=== PATIENT | female | born 1960 | race Caucasian/White ===

== ENCOUNTER 2021-04-03 12:16 | Inpatient (IN) ==
[2021-04-03] MEDS ORDERED: PANTOPRAZOLE 40 MG VIAL IV STA (13:42)
[2021-04-03 16:18] LABS: Basophils % 0.3 % (0.0-0.8); Eosinophils % 0.3 % (0.00-10.9); Hematocrit 30.1 VOL% (35.7-47.0); Hemoglobin 9.6 GM/DL (12.0-16.0); Immature Granulocytes % 0.5 %; Immature Granulocytes Absolute 0.04 #; Lymphocytes # 0.9 10*3/uL (1.4-4.0); Lymphocytes % 11.3 % (21.3-54.2); Mean Corpuscular HGB Conc 31.9 GM/DL (32-36); Mean Corpuscular Volume 98.4 FL (87-102); Mean Platelet Volume 9.7 FL (9.6-12.0); Monocytes % 12.3 % (1.7-12.7); NRBC # 0.02 10*3/uL; Neutrophils % 75.3 % (38.7-73.9); Platelet Count 263 T/CUMM (130-400); Red Blood Count 3.06 MC/CUMM (3.8-5.5); Red Cell Distribution Width 21.2 % (9.3-17.3); White Blood Count 7.6 T/CUMM (4-12)
[2021-04-03 16:27] LABS: INR 1.2; PT Patient Result 12.8 SECS (10.5-12.0)
[2021-04-03 17:10] LABS: Albumin 2.5 G/DL (3.4-5.0); Bilirubin,Total 0.9 MG/DL (0.20-1.00); Calcium 7.6 MG/DL (8.5-10.1); Osmolality,Calculated 272.8 MOS/KG (273-304); Potassium 2.8 MMOL/L (3.5-5.1); Total Protein 5.7 G/DL (6.4-8.2)
[2021-04-03] MEDS ORDERED: SODIUM CHLORIDE 0.9% 1,000 ML IV STA (17:12)
[2021-04-03] MEDS ORDERED: POTASSIUM CHLORIDE 20 MEQ TABLET PO STA (17:14)
[2021-04-03] MEDS ORDERED: ONDANSETRON 4 MG/2 ML VIAL IV STA (17:22)
[2021-04-03] MEDS ORDERED: SODIUM CHLOR 0.9% KCL 20 MEQ 20 MEQ/1,000 ML BAG IV ONE (17:30)
[2021-04-03] MEDS ORDERED: SODIUM CHLOR 0.9% KCL 40 MEQ 40 MEQ/1,000 ML BAG IV SCH (17:30)
[2021-04-03 18:58] LABS: Bilirubin,Urine Negative (Negative); Blood, Urine Negative (Negative); Glucose,Urine (UA) Negative (Negative); Hyaline Casts,Urine 19 /LPF (0-3); Ketones,Urine 5 mg/dL (Negative); Mucus,Urine Occasional /LPF (Occasional); Nitrite,Urine Negative (Negative); Protein,Urine 100 MG/DL; RBC,Urine 8 /HPF (0-4); Squamous Epithelial Cell,Urine Many /HPF (0-10); Urine Appearance CLOUDY (Clear); Urine Color Yellow (Yellow); Urine Specific Gravity 1.012 (1.001-1.035); Urine Urobilinogen < 2.0 EU/DL (0.2-1.0)
[2021-04-03] MEDS ORDERED: PROMETHAZINE 25 MG/1 ML VIAL ONE (19:07)
[2021-04-03] MEDS ORDERED: PROMETHAZINE 25 MG/1 ML VIAL IM STA (19:12)
[2021-04-03] MEDS ORDERED: ONDANSETRON 4 MG/2 ML VIAL IV PRN (19:27)
[2021-04-03] MEDS ORDERED: GLUCAGON 1 MG VIAL IM PRN (19:27)
[2021-04-03] MEDS ORDERED: DEXTROSE 50% 25 GM/50 ML VIAL IV PRN (19:27)
[2021-04-03] MEDS ORDERED: ACETAMINOPHEN 325 MG TABLET PO PRN (19:27)
[2021-04-03] MEDS ORDERED: POTASSIUM CHLORIDE INJ 40 MEQ in SODIUM CHLORIDE 0.9% 1,000 ML IV SCH (19:30)
[2021-04-03] MEDS: METOPROLOL TARTRATE 50 MG TABLET PO SCH (21:38)
[2021-04-03] MEDS: LOPERAMIDE 2 MG CAPSULE PO PRN (21:38)
[2021-04-03] MEDS: TOPIRAMATE 25 MG TABLET PO SCH (21:38)
[2021-04-03] MEDS: cefTRIAXone 1,000 MG in SODIUM CHLORIDE 0.9% 100 ML IV SCH (21:39)
[2021-04-03] MEDS: ENOXAPARIN 30 MG/0.3 ML SYRINGE SUBCUT SCH ×2 (21:39→22:45)
[2021-04-03] MEDS: SODIUM CHLOR 0.9% KCL 40 MEQ 40 MEQ/1,000 ML BAG IV SCH (21:39)
[2021-04-03] MEDS ORDERED: INFLUENZA VIRUS VACCINE 0.5 ML SYRINGE IM ONE (22:07)
[2021-04-04] MEDS: SODIUM CHLOR 0.9% KCL 40 MEQ 40 MEQ/1,000 ML BAG IV SCH ×2 (04:57→06:48)
[2021-04-04 08:07] LABS: Blood Urea Nitrogen 12 MG/DL (7-18); Carbon Dioxide 13 MMOL/L (21-32); Estimated Glom Filtration Rate 42 ML/MIN; Glucose 68 MG/DL (74-106); Osmolality,Calculated 265.2 MOS/KG (273-304); Sodium 134 MMOL/L (136-145)
[2021-04-04 08:12] LABS: Calcium < 5.0 MG/DL (8.5-10.1)
[2021-04-04] MEDS ORDERED: FEBUXOSTAT 40 MG PO SCH (09:00)
[2021-04-04 09:07] LABS: Basophils % 0.3 % (0.0-0.8); Eosinophils # 0.1 10*3/uL (0.0-0.87); Hematocrit 25.8 VOL% (35.7-47.0); Hemoglobin 8.1 GM/DL (12.0-16.0); Immature Granulocytes % 0.7 %; Immature Granulocytes Absolute 0.05 #; Lymphocytes # 1.2 10*3/uL (1.4-4.0); Lymphocytes % 15.4 % (21.3-54.2); Mean Corpuscular HGB Conc 31.4 GM/DL (32-36); Mean Platelet Volume 9.7 FL (9.6-12.0); Monocytes % 14.3 % (1.7-12.7); Neutrophils % 68.3 % (38.7-73.9); Platelet Count 223 T/CUMM (130-400); Red Blood Count 2.58 MC/CUMM (3.8-5.5); Red Cell Distribution Width 21.7 % (9.3-17.3); White Blood Count 7.7 T/CUMM (4-12)
[2021-04-04] MEDS: TOPIRAMATE 25 MG TABLET PO SCH ×2 (09:08→20:21)
[2021-04-04] MEDS: METOPROLOL TARTRATE 50 MG TABLET PO SCH ×2 (09:08→22:00)
[2021-04-04] MEDS: PANTOPRAZOLE 40 MG TABLET PO SCH (09:08)
[2021-04-04] MEDS: ATORVASTATIN 40 MG TABLET PO SCH (09:08)
[2021-04-04] MEDS ORDERED: MAGNESIUM SULF RIDER 2 GM/50 ML PREMIX IV ONE (10:00)
[2021-04-04 11:50] LABS: Osmolality,Calculated 277.4 MOS/KG (273-304); Potassium 3.9 MMOL/L (3.5-5.1)
[2021-04-04] MEDS: SODIUM BICARB INJ 50 MEQ in SODIUM CHLORIDE 0.45% 1,000 ML IV SCH (14:15)
[2021-04-04] MEDS: LOPERAMIDE 2 MG CAPSULE PO PRN (19:30)
[2021-04-04] MEDS: cefTRIAXone 1,000 MG in SODIUM CHLORIDE 0.9% 100 ML IV SCH (20:19)
[2021-04-04] MEDS: HYDROmorphone 2 MG/1 ML VIAL IV PRN (20:19)
[2021-04-04] MEDS: ENOXAPARIN 30 MG/0.3 ML SYRINGE SUBCUT SCH (20:23)
[2021-04-05] MEDS: SODIUM BICARB INJ 50 MEQ in SODIUM CHLORIDE 0.45% 1,000 ML IV SCH ×2 (00:27→14:34)
[2021-04-05] MEDS: HYDROmorphone 2 MG/1 ML VIAL IV PRN ×4 (01:03→20:25)
[2021-04-05] MEDS: TOPIRAMATE 25 MG TABLET PO SCH ×2 (09:20→20:25)
[2021-04-05] MEDS: ATORVASTATIN 40 MG TABLET PO SCH (09:20)
[2021-04-05] MEDS: PANTOPRAZOLE 40 MG TABLET PO SCH (09:20)
[2021-04-05] MEDS: METOPROLOL TARTRATE 50 MG TABLET PO SCH ×2 (09:20→20:25)
[2021-04-05 11:43] LABS: Calcium 6.9 MG/DL (8.5-10.1); Osmolality,Calculated 280.4 MOS/KG (273-304); Potassium 2.9 MMOL/L (3.5-5.1)
[2021-04-05] MEDS: DICYCLOMINE 10 MG CAPSULE PO SCH ×3 (12:44→20:25)
[2021-04-05] MEDS ORDERED: MAGNESIUM SULF RIDER 4 GM/100 ML PREMIX IV PRN (13:33)
[2021-04-05] MEDS ORDERED: MAGNESIUM SULF RIDER 2 GM/50 ML PREMIX IV PRN (13:33)
[2021-04-05] MEDS: SODIUM BICARB IV SCH (20:25)
[2021-04-05] MEDS: SODIUM CHLORIDE 0.45% IV SCH (20:25)
[2021-04-05] MEDS: cefTRIAXone 1,000 MG in SODIUM CHLORIDE 0.9% 100 ML IV SCH (20:25)
[2021-04-05] MEDS: POTASSIUM ACETATE IV SCH (20:25)
[2021-04-05] MEDS: ENOXAPARIN 30 MG/0.3 ML SYRINGE SUBCUT SCH (20:25)
[2021-04-05] MEDS: POTASSIUM CHLORIDE 20 MEQ TABLET PO SCH (20:25)
[2021-04-06] MEDS: HYDROmorphone 2 MG/1 ML VIAL IV PRN ×3 (02:10→19:55)
[2021-04-06] MEDS: SODIUM BICARB IV SCH (06:25)
[2021-04-06] MEDS: SODIUM CHLORIDE 0.45% IV SCH (06:25)
[2021-04-06] MEDS: POTASSIUM ACETATE IV SCH (06:25)
[2021-04-06 06:44] LABS: Calcium 6.9 MG/DL (8.5-10.1); Osmolality,Calculated 270.8 MOS/KG (273-304); Potassium 3.5 MMOL/L (3.5-5.1)
[2021-04-06] MEDS: PANTOPRAZOLE 40 MG TABLET PO SCH (09:23)
[2021-04-06] MEDS: ATORVASTATIN 40 MG TABLET PO SCH (09:23)
[2021-04-06] MEDS: METOPROLOL TARTRATE 50 MG TABLET PO SCH ×2 (09:24→20:03)
[2021-04-06] MEDS: TOPIRAMATE 25 MG TABLET PO SCH ×2 (09:24→20:03)
[2021-04-06] MEDS: DICYCLOMINE 10 MG CAPSULE PO SCH ×3 (09:24→20:03)
[2021-04-06] MEDS: POTASSIUM CHLORIDE 20 MEQ TABLET PO SCH ×2 (09:30→20:04)
[2021-04-06] MEDS: predniSONE 20 MG TABLET PO SCH (16:05)
[2021-04-06] MEDS: SODIUM BICARB INJ 100 MEQ in SODIUM CHLORIDE 0.45% 1,000 ML IV SCH (16:07)
[2021-04-06] MEDS: cefTRIAXone 1,000 MG in SODIUM CHLORIDE 0.9% 100 ML IV SCH (20:04)
[2021-04-06] MEDS: ENOXAPARIN 30 MG/0.3 ML SYRINGE SUBCUT SCH (20:08)
[2021-04-07] MEDS: SODIUM BICARB INJ 100 MEQ in SODIUM CHLORIDE 0.45% 1,000 ML IV SCH (01:30)
[2021-04-07 06:24] LABS: Calcium 7.2 MG/DL (8.5-10.1); Osmolality,Calculated 261.9 MOS/KG (273-304); Potassium 4.6 MMOL/L (3.5-5.1)
[2021-04-07] MEDS: predniSONE 20 MG TABLET PO SCH (09:18)
[2021-04-07] MEDS: PANTOPRAZOLE 40 MG TABLET PO SCH (09:18)
[2021-04-07] MEDS: POTASSIUM CHLORIDE 20 MEQ TABLET PO SCH (09:18)
[2021-04-07] MEDS: TOPIRAMATE 25 MG TABLET PO SCH ×2 (09:18→21:04)
[2021-04-07] MEDS: ATORVASTATIN 40 MG TABLET PO SCH (09:18)
[2021-04-07] MEDS: DICYCLOMINE 10 MG CAPSULE PO SCH ×3 (09:18→21:04)
[2021-04-07] MEDS: METOPROLOL TARTRATE 50 MG TABLET PO SCH ×2 (09:20→21:10)
[2021-04-07] MEDS: SODIUM BICARBONATE 650 MG TABLET PO SCH ×2 (10:47→21:05)
[2021-04-07] MEDS: SODIUM CHLORIDE 0.9% 1,000 ML IV SCH (10:48)
[2021-04-07] MEDS ORDERED: MAGNESIUM SULF RIDER 2 GM/50 ML PREMIX IV ONE (15:00)
[2021-04-07] MEDS ORDERED: FUROSEMIDE 40 MG/4 ML VIAL IV ONE (15:07)
[2021-04-07] MEDS ORDERED: INFLUENZA VIRUS VACCINE 0.5 ML SYRINGE IM ONE (15:43)
[2021-04-07] MEDS: LOPERAMIDE 2 MG CAPSULE PO PRN (21:04)
[2021-04-07] MEDS: cefTRIAXone 1,000 MG in SODIUM CHLORIDE 0.9% 100 ML IV SCH (21:07)
[2021-04-07] MEDS: ENOXAPARIN 30 MG/0.3 ML SYRINGE SUBCUT SCH (21:09)
[2021-04-08] MEDS: SODIUM CHLORIDE 0.9% 1,000 ML IV SCH ×2 (00:14→08:53)
[2021-04-08 08:23] LABS: Eosinophils % 0.2 % (0.00-10.9); Hematocrit 24.2 VOL% (35.7-47.0); Hemoglobin 7.4 GM/DL (12.0-16.0); Immature Granulocytes % 1.2 %; Immature Granulocytes Absolute 0.07 #; Lymphocytes # 0.9 10*3/uL (1.4-4.0); Lymphocytes % 14.2 % (21.3-54.2); Mean Corpuscular HGB Conc 30.6 GM/DL (32-36); Mean Corpuscular Volume 102.5 FL (87-102); Mean Platelet Volume 9.9 FL (9.6-12.0); Monocytes % 11.7 % (1.7-12.7); NRBC # 0.02 10*3/uL; Neutrophils % 72.7 % (38.7-73.9); Platelet Count 152 T/CUMM (130-400); Red Blood Count 2.36 MC/CUMM (3.8-5.5); Red Cell Distribution Width 21.8 % (9.3-17.3)
[2021-04-08 08:35] LABS: Calcium 7.7 MG/DL (8.5-10.1); Osmolality,Calculated 282.1 MOS/KG (273-304); Potassium 3.7 MMOL/L (3.5-5.1)
[2021-04-08] MEDS: PANTOPRAZOLE 40 MG TABLET PO SCH (08:46)
[2021-04-08] MEDS: predniSONE 20 MG TABLET PO SCH (08:47)
[2021-04-08] MEDS: ATORVASTATIN 40 MG TABLET PO SCH (08:47)
[2021-04-08] MEDS: SODIUM BICARBONATE 650 MG TABLET PO SCH (08:47)
[2021-04-08] MEDS: DICYCLOMINE 10 MG CAPSULE PO SCH ×3 (08:47→22:07)
[2021-04-08] MEDS: TOPIRAMATE 25 MG TABLET PO SCH ×2 (08:47→22:07)
[2021-04-08] MEDS: METOPROLOL TARTRATE 50 MG TABLET PO SCH (09:11)
[2021-04-08] MEDS ORDERED: FUROSEMIDE 40 MG/4 ML VIAL IV ONE (09:30)
[2021-04-08] MEDS ORDERED: SODIUM CHLORIDE 0.9% 1,000 ML IV PRN ×2 (10:33→18:31)
[2021-04-08] MEDS ORDERED: MAGNESIUM SULF RIDER 2 GM/50 ML PREMIX IV ONE (10:45)
[2021-04-08] MEDS ORDERED: POTASSIUM CHLORIDE 20 MEQ TABLET PO ONE (10:45)
[2021-04-08] MEDS: buPROPion XL 150 MG TABLET PO SCH (12:03)
[2021-04-08] MEDS: HYDROmorphone 2 MG/1 ML VIAL IV PRN (14:25)
[2021-04-08] MEDS: METOPROLOL TARTRATE 25 MG TABLET PO SCH (22:07)
[2021-04-08] MEDS: cefTRIAXone 1,000 MG in SODIUM CHLORIDE 0.9% 100 ML IV SCH (22:08)
[2021-04-08] MEDS: ENOXAPARIN 30 MG/0.3 ML SYRINGE SUBCUT SCH (22:08)
[2021-04-09] MEDS: HYDROmorphone 2 MG/1 ML VIAL IV PRN ×3 (01:06→16:34)
[2021-04-09 06:38] LABS: Calcium 7.5 MG/DL (8.5-10.1); Osmolality,Calculated 280.3 MOS/KG (273-304); Potassium 3.7 MMOL/L (3.5-5.1)
[2021-04-09 06:42] LABS: Eosinophils % 0.4 % (0.00-10.9); Hematocrit 28.7 VOL% (35.7-47.0); Immature Granulocytes % 1.1 %; Immature Granulocytes Absolute 0.08 #; Lymphocytes # 1.2 10*3/uL (1.4-4.0); Lymphocytes % 16.2 % (21.3-54.2); Mean Corpuscular HGB Conc 31.4 GM/DL (32-36); Mean Corpuscular Volume 99.3 FL (87-102); Mean Platelet Volume 10.2 FL (9.6-12.0); NRBC # 0.04 10*3/uL; Neutrophils % 68.3 % (38.7-73.9); Platelet Count 153 T/CUMM (130-400); Red Cell Distribution Width 20.4 % (9.3-17.3); White Blood Count 7.2 T/CUMM (4-12)
[2021-04-09 06:45] LABS: Red Blood Count 2.89 MC/CUMM (3.8-5.5)
[2021-04-09] MEDS ORDERED: FUROSEMIDE 40 MG/4 ML VIAL IV ONE (08:30)
[2021-04-09] MEDS: ATORVASTATIN 40 MG TABLET PO SCH (09:43)
[2021-04-09] MEDS: predniSONE 20 MG TABLET PO SCH (09:43)
[2021-04-09] MEDS: buPROPion XL 150 MG TABLET PO SCH (09:43)
[2021-04-09] MEDS: TOPIRAMATE 25 MG TABLET PO SCH ×2 (09:43→20:36)
[2021-04-09] MEDS: PANTOPRAZOLE 40 MG TABLET PO SCH (09:43)
[2021-04-09] MEDS: DICYCLOMINE 10 MG CAPSULE PO SCH ×3 (09:43→20:36)
[2021-04-09] MEDS ORDERED: METOPROLOL TARTRATE 25 MG TABLET PO ONE (09:45)
[2021-04-09] MEDS ORDERED: DIGOXIN 0.5 MG/2 ML AMP IV ONE (10:30)
[2021-04-09] MEDS: METOPROLOL TARTRATE 25 MG TABLET PO SCH ×3 (13:27→20:36)
[2021-04-09] MEDS: GABAPENTIN 300 MG CAPSULE PO SCH ×2 (15:01→20:36)
[2021-04-09] MEDS: cefTRIAXone 1,000 MG in SODIUM CHLORIDE 0.9% 100 ML IV SCH (20:35)
[2021-04-09] MEDS: ENOXAPARIN 30 MG/0.3 ML SYRINGE SUBCUT SCH (20:36)
[2021-04-09] MEDS ORDERED: METOPROLOL TARTRATE 25 MG TABLET PO SCH (21:00)
[2021-04-10] MEDS: HYDROmorphone 2 MG/1 ML VIAL IV PRN ×3 (02:27→22:25)
[2021-04-10 05:55] LABS: Basophils % 0.2 % (0.0-0.8); Eosinophils % 0.5 % (0.00-10.9); Hematocrit 30.8 VOL% (35.7-47.0); Hemoglobin 9.6 GM/DL (12.0-16.0); Immature Granulocytes % 1.3 %; Immature Granulocytes Absolute 0.07 #; Lymphocytes # 1.3 10*3/uL (1.4-4.0); Lymphocytes % 22.4 % (21.3-54.2); Mean Corpuscular HGB Conc 31.2 GM/DL (32-36); Mean Corpuscular Volume 100.7 FL (87-102); Mean Platelet Volume 9.7 FL (9.6-12.0); Monocytes % 15.2 % (1.7-12.7); NRBC # 0.04 10*3/uL; Neutrophils % 60.4 % (38.7-73.9); Platelet Count 123 T/CUMM (130-400); Red Blood Count 3.06 MC/CUMM (3.8-5.5); Red Cell Distribution Width 20.5 % (9.3-17.3); White Blood Count 5.6 T/CUMM (4-12)
[2021-04-10 08:32] LABS: Calcium 7.6 MG/DL (8.5-10.1); Osmolality,Calculated 279.3 MOS/KG (273-304); Potassium 3.6 MMOL/L (3.5-5.1)
[2021-04-10] MEDS: GABAPENTIN 300 MG CAPSULE PO SCH ×2 (09:05→21:12)
[2021-04-10] MEDS: DICYCLOMINE 10 MG CAPSULE PO SCH ×3 (09:05→21:12)
[2021-04-10] MEDS: PANTOPRAZOLE 40 MG TABLET PO SCH (09:05)
[2021-04-10] MEDS: buPROPion XL 150 MG TABLET PO SCH (09:05)
[2021-04-10] MEDS: ATORVASTATIN 40 MG TABLET PO SCH (09:05)
[2021-04-10] MEDS: METOPROLOL TARTRATE 25 MG TABLET PO SCH (09:05)
[2021-04-10] MEDS: TOPIRAMATE 25 MG TABLET PO SCH ×2 (09:09→21:12)
[2021-04-10] MEDS ORDERED: POTASSIUM CHLORIDE 20 MEQ TABLET PO ONE (11:09)
[2021-04-10] MEDS: cilostazoL 50 MG TABLET PO SCH ×2 (11:17→21:12)
[2021-04-10] MEDS ORDERED: MAGNESIUM SULF INJ 3 GM in SODIUM CHLORIDE 0.9% 100 ML IV ONE (12:00)
[2021-04-10] MEDS: ENOXAPARIN 30 MG/0.3 ML SYRINGE SUBCUT SCH (21:12)
[2021-04-10] MEDS: cefTRIAXone 1,000 MG in SODIUM CHLORIDE 0.9% 100 ML IV SCH (21:17)
[2021-04-11] MEDS ORDERED: DILTIAZEM 25 MG/5 ML VIAL IV ONE (01:44)
[2021-04-11] MEDS ORDERED: METOPROLOL TARTRATE 5 MG/5 ML VIAL IV ONE ×3 (01:55→03:51)
[2021-04-11 06:14] LABS: Basophils % 0.3 % (0.0-0.8); Eosinophils # 0.2 10*3/uL (0.0-0.87); Eosinophils % 3.9 % (0.00-10.9); Hematocrit 28.5 VOL% (35.7-47.0); Hemoglobin 8.9 GM/DL (12.0-16.0); Immature Granulocytes Absolute 0.06 #; Lymphocytes # 1.1 10*3/uL (1.4-4.0); Lymphocytes % 17.4 % (21.3-54.2); Mean Corpuscular HGB Conc 31.2 GM/DL (32-36); Mean Corpuscular Volume 102.9 FL (87-102); Mean Platelet Volume 10.6 FL (9.6-12.0); Monocytes % 15.3 % (1.7-12.7); NRBC # 0.05 10*3/uL; Neutrophils % 62.1 % (38.7-73.9); Platelet Count 119 T/CUMM (130-400); Red Blood Count 2.77 MC/CUMM (3.8-5.5); Red Cell Distribution Width 19.9 % (9.3-17.3); White Blood Count 6.2 T/CUMM (4-12)
[2021-04-11] MEDS: DILTIAZEM INJ 100 MG in SODIUM CHLORIDE 0.9% 100 ML IV SCH (06:21)
[2021-04-11 06:29] LABS: Calcium 7.6 MG/DL (8.5-10.1); Osmolality,Calculated 279.4 MOS/KG (273-304)
[2021-04-11 06:50] LABS: Atypical Lymphocytes Few; Hypochromasia Slight; Platelet Estimate Adequate
[2021-04-11] MEDS ORDERED: MAGNESIUM SULF RIDER 2 GM/50 ML PREMIX IV ONE (07:26)
[2021-04-11] MEDS ORDERED: DIGOXIN 0.5 MG/2 ML AMP IV ONE ×2 (07:34→13:45)
[2021-04-11] MEDS ORDERED: FUROSEMIDE 40 MG/4 ML VIAL IV ONE (07:40)
[2021-04-11] MEDS ORDERED: DILTIAZEM 30 MG TABLET PO SCH (09:00)
[2021-04-11] MEDS ORDERED: COLCHICINE 0.6 MG CAPSULE PO ONE (09:20)
[2021-04-11] MEDS: DILTIAZEM 30 MG TABLET PO SCH ×4 (12:07→23:44)
[2021-04-11] MEDS: DICYCLOMINE 10 MG CAPSULE PO SCH ×3 (12:07→22:28)
[2021-04-11] MEDS: GABAPENTIN 300 MG CAPSULE PO SCH ×2 (12:07→22:28)
[2021-04-11] MEDS: ATORVASTATIN 40 MG TABLET PO SCH (12:07)
[2021-04-11] MEDS: ASCORBIC ACID 500 MG TABLET PO SCH ×2 (12:08→22:26)
[2021-04-11] MEDS: cilostazoL 50 MG TABLET PO SCH ×2 (12:08→22:28)
[2021-04-11] MEDS: PANTOPRAZOLE 40 MG TABLET PO SCH (12:08)
[2021-04-11] MEDS: TOPIRAMATE 25 MG TABLET PO SCH ×2 (12:08→22:27)
[2021-04-11] MEDS: buPROPion XL 150 MG TABLET PO SCH (12:09)
[2021-04-11] MEDS: predniSONE 20 MG TABLET PO SCH (12:09)
[2021-04-11] MEDS: HYDROmorphone 2 MG/1 ML VIAL IV PRN (12:29)
[2021-04-11] MEDS ORDERED: APIXABAN 5 MG TABLET PO SCH (21:00)
[2021-04-11] MEDS: APIXABAN 5 MG TABLET PO SCH (22:28)
[2021-04-12 05:02] LABS: Eosinophils % 0.4 % (0.00-10.9); Hematocrit 28.4 VOL% (35.7-47.0); Hemoglobin 8.8 GM/DL (12.0-16.0); Immature Granulocytes % 1.1 %; Immature Granulocytes Absolute 0.06 #; Lymphocytes # 0.6 10*3/uL (1.4-4.0); Lymphocytes % 11.3 % (21.3-54.2); Mean Corpuscular Volume 101.4 FL (87-102); Mean Platelet Volume 9.7 FL (9.6-12.0); Monocytes % 11.3 % (1.7-12.7); Neutrophils % 75.9 % (38.7-73.9); Platelet Count 128 T/CUMM (130-400); Red Cell Distribution Width 19.5 % (9.3-17.3); White Blood Count 5.6 T/CUMM (4-12)
[2021-04-12 05:20] LABS: Osmolality,Calculated 284.3 MOS/KG (273-304); Potassium 3.6 MMOL/L (3.5-5.1)
[2021-04-12] MEDS: DILTIAZEM 30 MG TABLET PO SCH ×4 (06:08→23:58)
[2021-04-12] MEDS: DILTIAZEM INJ 100 MG in SODIUM CHLORIDE 0.9% 100 ML IV SCH (06:08)
[2021-04-12] MEDS: buPROPion XL 150 MG TABLET PO SCH (09:08)
[2021-04-12] MEDS: APIXABAN 5 MG TABLET PO SCH ×2 (09:08→22:16)
[2021-04-12] MEDS: ATORVASTATIN 40 MG TABLET PO SCH (09:08)
[2021-04-12] MEDS: DICYCLOMINE 10 MG CAPSULE PO SCH ×3 (09:09→22:15)
[2021-04-12] MEDS: GABAPENTIN 300 MG CAPSULE PO SCH ×2 (09:09→22:15)
[2021-04-12] MEDS: PANTOPRAZOLE 40 MG TABLET PO SCH (09:09)
[2021-04-12] MEDS: TOPIRAMATE 25 MG TABLET PO SCH ×2 (09:09→22:15)
[2021-04-12] MEDS: ASCORBIC ACID 500 MG TABLET PO SCH ×2 (09:09→22:15)
[2021-04-12] MEDS: predniSONE 20 MG TABLET PO SCH (09:15)
[2021-04-12] MEDS: cilostazoL 50 MG TABLET PO SCH ×2 (09:15→22:15)
[2021-04-12] MEDS: HYDROmorphone 2 MG/1 ML VIAL IV PRN ×2 (13:27→22:23)
[2021-04-13] MEDS: DILTIAZEM INJ 100 MG in SODIUM CHLORIDE 0.9% 100 ML IV SCH ×2 (01:00→23:05)
[2021-04-13] MEDS: HYDROmorphone 2 MG/1 ML VIAL IV PRN ×4 (04:17→23:04)
[2021-04-13] MEDS: DILTIAZEM 30 MG TABLET PO SCH ×4 (05:41→23:03)
[2021-04-13 05:42] LABS: Basophils % 0.2 % (0.0-0.8); Eosinophils % 0.3 % (0.00-10.9); Hematocrit 27.7 VOL% (35.7-47.0); Hemoglobin 8.3 GM/DL (12.0-16.0); Immature Granulocytes % 1.7 %; Immature Granulocytes Absolute 0.11 #; Lymphocytes # 0.8 10*3/uL (1.4-4.0); Lymphocytes % 11.9 % (21.3-54.2); Mean Corpuscular Volume 103.7 FL (87-102); Monocytes % 10.6 % (1.7-12.7); NRBC # 0.03 10*3/uL; Neutrophils % 75.3 % (38.7-73.9); Platelet Count 137 T/CUMM (130-400); Red Blood Count 2.67 MC/CUMM (3.8-5.5); Red Cell Distribution Width 19.5 % (9.3-17.3); White Blood Count 6.6 T/CUMM (4-12)
[2021-04-13 06:09] LABS: Calcium 8.1 MG/DL (8.5-10.1); Osmolality,Calculated 282.4 MOS/KG (273-304); Potassium 3.3 MMOL/L (3.5-5.1)
[2021-04-13] MEDS ORDERED: POTASSIUM CHLORIDE RIDER 10 MEQ/100 ML PREMIX IV PRN (07:26)
[2021-04-13] MEDS: cilostazoL 50 MG TABLET PO SCH ×2 (10:13→20:48)
[2021-04-13] MEDS: ASCORBIC ACID 500 MG TABLET PO SCH ×2 (10:13→20:49)
[2021-04-13] MEDS: buPROPion XL 150 MG TABLET PO SCH (10:13)
[2021-04-13] MEDS: TOPIRAMATE 25 MG TABLET PO SCH ×2 (10:14→20:48)
[2021-04-13] MEDS: predniSONE 20 MG TABLET PO SCH (10:14)
[2021-04-13] MEDS: POTASSIUM CHLORIDE 20 MEQ TABLET PO PRN ×3 (10:14→15:03)
[2021-04-13] MEDS: APIXABAN 5 MG TABLET PO SCH (10:14)
[2021-04-13] MEDS: GABAPENTIN 300 MG CAPSULE PO SCH ×2 (10:14→20:49)
[2021-04-13] MEDS: ATORVASTATIN 40 MG TABLET PO SCH (10:14)
[2021-04-13] MEDS: PANTOPRAZOLE 40 MG TABLET PO SCH (10:15)
[2021-04-13] MEDS: DICYCLOMINE 10 MG CAPSULE PO SCH ×3 (10:15→20:49)
[2021-04-13 12:05] LABS: Bacteria,Urine Few /HPF (Few); Bilirubin,Urine Negative (Negative); Blood, Urine Negative (Negative); Glucose,Urine (UA) Negative (Negative); Ketones,Urine Negative (Negative); Mucus,Urine Occasional /LPF (Occasional); Nitrite,Urine Negative (Negative); Protein,Urine 100 MG/DL; RBC,Urine 3 /HPF (0-4); Squamous Epithelial Cell,Urine Few /HPF (0-10); Urine Appearance CLOUDY (Clear); Urine Color Yellow (Yellow); Urine Specific Gravity 1.015 (1.001-1.035); Urine Urobilinogen < 2.0 EU/DL (0.2-1.0)
[2021-04-13] MEDS ORDERED: FUROSEMIDE 40 MG/4 ML VIAL IV ONE (13:12)
[2021-04-13] MEDS: LOPERAMIDE 2 MG CAPSULE PO PRN (15:49)
[2021-04-13] MEDS: cefTRIAXone 1,000 MG in SODIUM CHLORIDE 0.9% 100 ML IV SCH (17:05)
[2021-04-13] MEDS: APIXABAN 2.5 MG TABLET PO SCH (20:50)
[2021-04-14] MEDS: HYDROmorphone 2 MG/1 ML VIAL IV PRN ×3 (04:38→20:26)
[2021-04-14 05:09] LABS: Basophils % 0.3 % (0.0-0.8); Hematocrit 31.4 VOL% (35.7-47.0); Hemoglobin 9.2 GM/DL (12.0-16.0); Immature Granulocytes % 1.9 %; Immature Granulocytes Absolute 0.14 #; Lymphocytes # 0.8 10*3/uL (1.4-4.0); Lymphocytes % 11.3 % (21.3-54.2); Mean Corpuscular HGB Conc 29.3 GM/DL (32-36); Mean Corpuscular Volume 106.1 FL (87-102); Mean Platelet Volume 9.9 FL (9.6-12.0); Monocytes % 8.2 % (1.7-12.7); NRBC # 0.04 10*3/uL; Neutrophils % 78.3 % (38.7-73.9); Platelet Count 165 T/CUMM (130-400); Red Blood Count 2.96 MC/CUMM (3.8-5.5); Red Cell Distribution Width 19.9 % (9.3-17.3); White Blood Count 7.4 T/CUMM (4-12)
[2021-04-14] MEDS: DILTIAZEM 30 MG TABLET PO SCH ×2 (05:15→11:41)
[2021-04-14 05:28] LABS: Calcium 8.8 MG/DL (8.5-10.1); Osmolality,Calculated 283.4 MOS/KG (273-304)
[2021-04-14] MEDS: APIXABAN 2.5 MG TABLET PO SCH ×2 (08:27→20:26)
[2021-04-14] MEDS: buPROPion XL 150 MG TABLET PO SCH (08:27)
[2021-04-14] MEDS: ASCORBIC ACID 500 MG TABLET PO SCH ×2 (08:27→20:26)
[2021-04-14] MEDS: TOPIRAMATE 25 MG TABLET PO SCH ×2 (08:28→20:26)
[2021-04-14] MEDS: ATORVASTATIN 40 MG TABLET PO SCH (08:28)
[2021-04-14] MEDS: cilostazoL 50 MG TABLET PO SCH ×2 (08:28→20:25)
[2021-04-14] MEDS: DICYCLOMINE 10 MG CAPSULE PO SCH ×3 (08:28→20:26)
[2021-04-14] MEDS: GABAPENTIN 300 MG CAPSULE PO SCH ×2 (08:28→20:25)
[2021-04-14] MEDS: PANTOPRAZOLE 40 MG TABLET PO SCH (08:28)
[2021-04-14] MEDS: predniSONE 20 MG TABLET PO SCH (08:28)
[2021-04-14] MEDS ORDERED: DIGOXIN 0.5 MG/2 ML AMP IV ONE (09:59)
[2021-04-14] MEDS: DILTIAZEM INJ 100 MG in SODIUM CHLORIDE 0.9% 100 ML IV SCH ×2 (10:51→20:23)
[2021-04-14] MEDS ORDERED: METOPROLOL TARTRATE 25 MG TABLET PO SCH (11:51)
[2021-04-14] MEDS: DIGOXIN 0.125 MG TABLET PO SCH (13:10)
[2021-04-14] MEDS ORDERED: AMIODARONE INJ 150 MG in DEXTROSE 5% 100 ML IV ONE (16:22)
[2021-04-14] MEDS ORDERED: AMIODARONE INJ 450 MG in DEXTROSE 5% 241 ML IV SCH (16:30)
[2021-04-14] MEDS: cefTRIAXone 1,000 MG in SODIUM CHLORIDE 0.9% 100 ML IV SCH (18:05)
[2021-04-14] MEDS: FUROSEMIDE 20 MG/2 ML VIAL IV SCH (18:36)
[2021-04-15] MEDS: HYDROmorphone 2 MG/1 ML VIAL IV PRN ×4 (02:43→20:49)
[2021-04-15] MEDS: AMIODARONE INJ 450 MG in DEXTROSE 5% 241 ML IV SCH ×2 (02:45→13:34)
[2021-04-15 05:04] LABS: Basophils % 0.2 % (0.0-0.8); Hematocrit 26.5 VOL% (35.7-47.0); Immature Granulocytes % 2.4 %; Immature Granulocytes Absolute 0.15 #; Lymphocytes # 0.7 10*3/uL (1.4-4.0); Lymphocytes % 10.4 % (21.3-54.2); Mean Corpuscular HGB Conc 30.2 GM/DL (32-36); Mean Corpuscular Volume 103.9 FL (87-102); Mean Platelet Volume 9.3 FL (9.6-12.0); Monocytes % 13.6 % (1.7-12.7); NRBC # 0.05 10*3/uL; Neutrophils % 73.4 % (38.7-73.9); Platelet Count 139 T/CUMM (130-400); Red Blood Count 2.55 MC/CUMM (3.8-5.5); Red Cell Distribution Width 19.6 % (9.3-17.3); White Blood Count 6.3 T/CUMM (4-12)
[2021-04-15 05:20] LABS: Calcium 8.2 MG/DL (8.5-10.1); Osmolality,Calculated 284.4 MOS/KG (273-304); Potassium 3.8 MMOL/L (3.5-5.1)
[2021-04-15] MEDS ORDERED: POTASSIUM CHLORIDE 20 MEQ TABLET PO ONE (06:44)
[2021-04-15] MEDS ORDERED: MAGNESIUM SULF RIDER 2 GM/50 ML PREMIX IV ONE (06:44)
[2021-04-15] MEDS ORDERED: propofoL 200 MG/20 ML VIAL IV ONE (08:54)
[2021-04-15] MEDS ORDERED: ePHEDrine 50 MG/ML VIAL ONE (08:54)
[2021-04-15] MEDS ORDERED: ETOMIDATE 40 MG/20 ML VIAL IV ONE (08:54)
[2021-04-15] MEDS ORDERED: LIDOCAINE 2% 5 ML VIAL ONE (08:54)
[2021-04-15] MEDS: PANTOPRAZOLE 40 MG TABLET PO SCH (10:49)
[2021-04-15] MEDS: buPROPion XL 150 MG TABLET PO SCH (10:49)
[2021-04-15] MEDS: allopurinoL 300 MG TABLET PO SCH (10:49)
[2021-04-15] MEDS: GABAPENTIN 300 MG CAPSULE PO SCH ×3 (10:49→20:49)
[2021-04-15] MEDS: predniSONE 20 MG TABLET PO SCH (10:50)
[2021-04-15] MEDS: cilostazoL 50 MG TABLET PO SCH ×2 (10:50→20:48)
[2021-04-15] MEDS: APIXABAN 2.5 MG TABLET PO SCH ×2 (10:50→20:49)
[2021-04-15] MEDS: DICYCLOMINE 10 MG CAPSULE PO SCH ×3 (10:50→20:49)
[2021-04-15] MEDS: TOPIRAMATE 25 MG TABLET PO SCH ×2 (10:50→20:49)
[2021-04-15] MEDS: ASCORBIC ACID 500 MG TABLET PO SCH ×2 (10:50→20:48)
[2021-04-15] MEDS: ATORVASTATIN 40 MG TABLET PO SCH (10:50)
[2021-04-15] MEDS: FUROSEMIDE 20 MG/2 ML VIAL IV SCH ×2 (10:51→16:04)
[2021-04-15] MEDS: SODIUM CHLORIDE 0.9% 1,000 ML IV SCH (10:55)
[2021-04-15] MEDS: DILTIAZEM INJ 100 MG in SODIUM CHLORIDE 0.9% 100 ML IV SCH (11:02)
[2021-04-15] MEDS ORDERED: AMIODARONE INJ 150 MG in DEXTROSE 5% 100 ML IV ONE (12:24)
[2021-04-15] MEDS: DIGOXIN 0.125 MG TABLET PO SCH (13:34)
[2021-04-15] MEDS: cefTRIAXone 1,000 MG in SODIUM CHLORIDE 0.9% 100 ML IV SCH (16:38)
[2021-04-15 17:13] LABS: % Iron Saturation 23.2 % (18-50); Ferritin 488.8 ng/mL (8-252)
[2021-04-15 17:14] LABS: Folate 9.91 NG/ML (5.38-24.0)
[2021-04-16] MEDS: HYDROmorphone 2 MG/1 ML VIAL IV PRN ×5 (00:36→23:27)
[2021-04-16 03:53] LABS: Basophils % 0.2 % (0.0-0.8); Immature Granulocytes % 5.4 %; Immature Granulocytes Absolute 0.29 #; Lymphocytes # 0.5 10*3/uL (1.4-4.0); Lymphocytes % 10.1 % (21.3-54.2); Mean Corpuscular HGB Conc 29.6 GM/DL (32-36); Mean Corpuscular Volume 105.5 FL (87-102); Mean Platelet Volume 9.6 FL (9.6-12.0); Neutrophils % 71.3 % (38.7-73.9); Platelet Count 137 T/CUMM (130-400); Red Blood Count 2.56 MC/CUMM (3.8-5.5); Red Cell Distribution Width 19.5 % (9.3-17.3); White Blood Count 5.4 T/CUMM (4-12)
[2021-04-16 04:11] LABS: Calcium 8.2 MG/DL (8.5-10.1); Osmolality,Calculated 286.4 MOS/KG (273-304); Potassium 4.1 MMOL/L (3.5-5.1)
[2021-04-16 04:29] LABS: Lymphocytes 13 % (20-55); Platelet Estimate Normal; Segmented Neutrophils 76 % (50-85); Total Cells Counted 100
[2021-04-16 04:30] LABS: Hypochromasia 1+; Microcytosis 1+
[2021-04-16] MEDS: AMIODARONE INJ 450 MG in DEXTROSE 5% 241 ML IV SCH (05:04)
[2021-04-16] MEDS: DILTIAZEM INJ 100 MG in SODIUM CHLORIDE 0.9% 100 ML IV SCH ×4 (05:35→21:12)
[2021-04-16] MEDS: FUROSEMIDE 20 MG/2 ML VIAL IV SCH ×2 (08:33→16:51)
[2021-04-16] MEDS: buPROPion XL 150 MG TABLET PO SCH (08:34)
[2021-04-16] MEDS: predniSONE 20 MG TABLET PO SCH (08:35)
[2021-04-16] MEDS: PANTOPRAZOLE 40 MG TABLET PO SCH (08:35)
[2021-04-16] MEDS: allopurinoL 300 MG TABLET PO SCH (08:35)
[2021-04-16] MEDS: ASCORBIC ACID 500 MG TABLET PO SCH ×2 (08:35→20:48)
[2021-04-16] MEDS: cilostazoL 50 MG TABLET PO SCH ×2 (08:35→20:48)
[2021-04-16] MEDS: DICYCLOMINE 10 MG CAPSULE PO SCH ×3 (08:35→20:48)
[2021-04-16] MEDS: ATORVASTATIN 40 MG TABLET PO SCH (08:35)
[2021-04-16] MEDS: APIXABAN 2.5 MG TABLET PO SCH (08:35)
[2021-04-16] MEDS: GABAPENTIN 300 MG CAPSULE PO SCH ×3 (08:35→20:48)
[2021-04-16] MEDS: TOPIRAMATE 25 MG TABLET PO SCH ×2 (08:35→20:49)
[2021-04-16] MEDS: fentaNYL 12 MCG/HR PATCH TRANSDERM SCH (08:37)
[2021-04-16] MEDS: SODIUM CHLORIDE 0.9% 1,000 ML IV SCH (09:43)
[2021-04-16 09:56] LABS: Rheumatoid Factor < 15 IU/ML (<15); Uric Acid 10.9 MG/DL (2.6-6.0)
[2021-04-16 10:20] LABS: Parathyroid Hormone Intact 104.9 PG/ML (18.4-80.1)
[2021-04-16] MEDS: AMIODARONE 200 MG TABLET PO SCH ×2 (11:18→20:48)
[2021-04-16] MEDS: DIGOXIN 0.125 MG TABLET PO SCH (12:59)
[2021-04-16] MEDS ORDERED: METOPROLOL TARTRATE 25 MG TABLET PO ONE (14:04)
[2021-04-16] MEDS ORDERED: VERAPAMIL 5 MG/2 ML VIAL IV ONE (15:00)
[2021-04-16] MEDS: cefTRIAXone 1,000 MG in SODIUM CHLORIDE 0.9% 100 ML IV SCH (16:51)
[2021-04-17] MEDS: HYDROmorphone 2 MG/1 ML VIAL IV PRN ×3 (04:39→20:49)
[2021-04-17 04:41] LABS: Basophils % 0.2 % (0.0-0.8); Eosinophils % 0.2 % (0.00-10.9); Hematocrit 27.2 VOL% (35.7-47.0); Hemoglobin 8.1 GM/DL (12.0-16.0); Immature Granulocytes % 4.4 %; Immature Granulocytes Absolute 0.23 #; Lymphocytes # 0.7 10*3/uL (1.4-4.0); Lymphocytes % 13.3 % (21.3-54.2); Mean Corpuscular HGB Conc 29.8 GM/DL (32-36); Mean Platelet Volume 9.7 FL (9.6-12.0); Monocytes % 14.2 % (1.7-12.7); NRBC # 0.09 10*3/uL; Neutrophils % 67.7 % (38.7-73.9); Platelet Count 139 T/CUMM (130-400); Red Blood Count 2.59 MC/CUMM (3.8-5.5); Red Cell Distribution Width 19.7 % (9.3-17.3); White Blood Count 5.2 T/CUMM (4-12)
[2021-04-17 05:08] LABS: Calcium 8.2 MG/DL (8.5-10.1); Osmolality,Calculated 288.4 MOS/KG (273-304); Potassium 4.4 MMOL/L (3.5-5.1)
[2021-04-17] MEDS: DILTIAZEM INJ 100 MG in SODIUM CHLORIDE 0.9% 100 ML IV SCH (06:55)
[2021-04-17] MEDS ORDERED: MAGNESIUM SULF RIDER 2 GM/50 ML PREMIX IV ONE (07:20)
[2021-04-17] MEDS: FUROSEMIDE 20 MG/2 ML VIAL IV SCH ×2 (09:31→15:06)
[2021-04-17] MEDS: VERAPAMIL 80 MG TABLET PO SCH ×3 (09:32→20:46)
[2021-04-17] MEDS: DICYCLOMINE 10 MG CAPSULE PO SCH ×3 (09:32→20:46)
[2021-04-17] MEDS: GABAPENTIN 300 MG CAPSULE PO SCH ×3 (09:33→20:46)
[2021-04-17] MEDS: ASCORBIC ACID 500 MG TABLET PO SCH ×2 (09:33→20:46)
[2021-04-17] MEDS: predniSONE 20 MG TABLET PO SCH (09:33)
[2021-04-17] MEDS: buPROPion XL 150 MG TABLET PO SCH (09:33)
[2021-04-17] MEDS: AMIODARONE 200 MG TABLET PO SCH ×2 (09:33→20:46)
[2021-04-17] MEDS: cilostazoL 50 MG TABLET PO SCH ×2 (09:33→20:46)
[2021-04-17] MEDS: TOPIRAMATE 25 MG TABLET PO SCH ×2 (09:33→20:45)
[2021-04-17] MEDS: ATORVASTATIN 40 MG TABLET PO SCH (09:33)
[2021-04-17] MEDS: PANTOPRAZOLE 40 MG TABLET PO SCH (09:33)
[2021-04-17] MEDS: allopurinoL 300 MG TABLET PO SCH (09:34)
[2021-04-17] MEDS ORDERED: fentaNYL 100 MCG/2 ML VIAL IV ONE (10:00)
[2021-04-17] MEDS ORDERED: MIDAZOLAM 2 MG/2 ML VIAL IV ONE (10:00)
[2021-04-17] MEDS ORDERED: HEPARIN/NACL 0.9% 2 UNITS/ML 4,000 UNIT/2,000 ML BAG IV ONE (10:41)
[2021-04-17] MEDS ORDERED: HEPARIN 5,000 UNIT/1 ML VIAL ONE (10:51)
[2021-04-17 12:37] LABS: Cyclic Citrull Peptide Interp Negative
[2021-04-17] MEDS: SODIUM CHLORIDE 0.45% 1,000 ML IV SCH (14:17)
[2021-04-17] MEDS: DIGOXIN 0.125 MG TABLET PO SCH (15:04)
[2021-04-17] MEDS: cefTRIAXone 1,000 MG in SODIUM CHLORIDE 0.9% 100 ML IV SCH (17:20)
[2021-04-18] MEDS: HYDROmorphone 2 MG/1 ML VIAL IV PRN ×4 (05:41→20:36)
[2021-04-18] MEDS ORDERED: VERAPAMIL 5 MG/2 ML VIAL IV ONE (08:44)
[2021-04-18 09:08] LABS: Basophils % 0.3 % (0.0-0.8); Eosinophils # 0.2 10*3/uL (0.0-0.87); Eosinophils % 3.5 % (0.00-10.9); Hematocrit 29.9 VOL% (35.7-47.0); Hemoglobin 9.1 GM/DL (12.0-16.0); Immature Granulocytes % 1.3 %; Immature Granulocytes Absolute 0.09 #; Lymphocytes # 1.1 10*3/uL (1.4-4.0); Lymphocytes % 15.3 % (21.3-54.2); Mean Corpuscular HGB Conc 30.4 GM/DL (32-36); Mean Corpuscular Volume 104.2 FL (87-102); Monocytes % 12.4 % (1.7-12.7); NRBC # 0.09 10*3/uL; Neutrophils % 67.2 % (38.7-73.9); Platelet Count 159 T/CUMM (130-400); Red Blood Count 2.87 MC/CUMM (3.8-5.5); Red Cell Distribution Width 20.1 % (9.3-17.3); White Blood Count 6.9 T/CUMM (4-12)
[2021-04-18] MEDS: PANTOPRAZOLE 40 MG TABLET PO SCH (09:23)
[2021-04-18] MEDS: APIXABAN 2.5 MG TABLET PO SCH ×2 (09:23→20:35)
[2021-04-18] MEDS: GABAPENTIN 300 MG CAPSULE PO SCH ×3 (09:23→20:35)
[2021-04-18] MEDS: DICYCLOMINE 10 MG CAPSULE PO SCH ×3 (09:23→20:34)
[2021-04-18] MEDS: ATORVASTATIN 40 MG TABLET PO SCH (09:23)
[2021-04-18] MEDS: buPROPion XL 150 MG TABLET PO SCH (09:23)
[2021-04-18] MEDS: cilostazoL 50 MG TABLET PO SCH ×2 (09:23→20:35)
[2021-04-18] MEDS: ASCORBIC ACID 500 MG TABLET PO SCH ×2 (09:23→20:34)
[2021-04-18] MEDS: TOPIRAMATE 25 MG TABLET PO SCH ×2 (09:23→20:35)
[2021-04-18] MEDS: AMIODARONE 200 MG TABLET PO SCH ×2 (09:24→20:35)
[2021-04-18] MEDS: VERAPAMIL 80 MG TABLET PO SCH ×3 (09:24→20:41)
[2021-04-18] MEDS: allopurinoL 300 MG TABLET PO SCH (09:24)
[2021-04-18] MEDS: predniSONE 20 MG TABLET PO SCH (09:24)
[2021-04-18 09:25] LABS: Calcium 8.5 MG/DL (8.5-10.1); Osmolality,Calculated 280.5 MOS/KG (273-304); Potassium 4.1 MMOL/L (3.5-5.1)
[2021-04-18] MEDS: FUROSEMIDE 20 MG/2 ML VIAL IV SCH ×2 (09:25→15:30)
[2021-04-18] MEDS: SODIUM CHLORIDE 0.45% 1,000 ML IV SCH (11:05)
[2021-04-18] MEDS: DIGOXIN 0.125 MG TABLET PO SCH (12:41)
[2021-04-18] MEDS ORDERED: SODIUM CHLORIDE 0.9% 1,000 ML IV SCH (14:00)
[2021-04-18 15:31] LABS: Protein C Activity Plasma 211 % (70 - 150)
[2021-04-18 15:32] LABS: DRVVT Screen Ratio 1.26 ratio (<1.20); INR 1.2 (0.9-1.1)
[2021-04-18] MEDS ORDERED: MAGNESIUM SULF RIDER 2 GM/50 ML PREMIX IV ONE (15:55)
[2021-04-18] MEDS: cefTRIAXone 1,000 MG in SODIUM CHLORIDE 0.9% 100 ML IV SCH (17:38)
[2021-04-18 19:16] LABS: Phospholipid Ab IgM, S < 9.4 MPL
[2021-04-18] MEDS: MAGNESIUM OXIDE 400 MG TABLET PO SCH (20:35)
[2021-04-19] MEDS: HYDROmorphone 2 MG/1 ML VIAL IV PRN ×5 (02:09→20:48)
[2021-04-19 05:24] LABS: Basophils % 0.2 % (0.0-0.8); Eosinophils # 0.1 10*3/uL (0.0-0.87); Hematocrit 26.7 VOL% (35.7-47.0); Hemoglobin 8.2 GM/DL (12.0-16.0); Immature Granulocytes % 1.6 %; Immature Granulocytes Absolute 0.08 #; Lymphocytes # 0.6 10*3/uL (1.4-4.0); Lymphocytes % 10.7 % (21.3-54.2); Mean Corpuscular HGB Conc 30.7 GM/DL (32-36); Mean Corpuscular Volume 103.9 FL (87-102); Mean Platelet Volume 9.5 FL (9.6-12.0); Monocytes % 11.8 % (1.7-12.7); NRBC # 0.03 10*3/uL; Neutrophils % 74.7 % (38.7-73.9); Platelet Count 129 T/CUMM (130-400); Red Blood Count 2.57 MC/CUMM (3.8-5.5); Red Cell Distribution Width 19.7 % (9.3-17.3); White Blood Count 5.2 T/CUMM (4-12)
[2021-04-19 05:49] LABS: Calcium 8.6 MG/DL (8.5-10.1); Osmolality,Calculated 281.7 MOS/KG (273-304); Potassium 3.9 MMOL/L (3.5-5.1)
[2021-04-19] MEDS: buPROPion XL 150 MG TABLET PO SCH (09:20)
[2021-04-19] MEDS: VERAPAMIL 80 MG TABLET PO SCH (09:20)
[2021-04-19] MEDS: fentaNYL 12 MCG/HR PATCH TRANSDERM SCH (09:21)
[2021-04-19] MEDS: ASCORBIC ACID 500 MG TABLET PO SCH ×2 (09:21→20:46)
[2021-04-19] MEDS: AMIODARONE 200 MG TABLET PO SCH ×2 (09:21→20:47)
[2021-04-19] MEDS: ATORVASTATIN 40 MG TABLET PO SCH (09:21)
[2021-04-19] MEDS: DICYCLOMINE 10 MG CAPSULE PO SCH ×3 (09:21→20:47)
[2021-04-19] MEDS: predniSONE 20 MG TABLET PO SCH (09:21)
[2021-04-19] MEDS: MAGNESIUM OXIDE 400 MG TABLET PO SCH ×2 (09:21→20:47)
[2021-04-19] MEDS: FUROSEMIDE 20 MG/2 ML VIAL IV SCH (09:22)
[2021-04-19] MEDS: GABAPENTIN 300 MG CAPSULE PO SCH ×3 (09:22→20:47)
[2021-04-19] MEDS: TOPIRAMATE 25 MG TABLET PO SCH ×2 (09:22→20:47)
[2021-04-19] MEDS: PANTOPRAZOLE 40 MG TABLET PO SCH (09:22)
[2021-04-19] MEDS: allopurinoL 300 MG TABLET PO SCH (09:22)
[2021-04-19] MEDS: cilostazoL 50 MG TABLET PO SCH ×2 (09:22→20:46)
[2021-04-19] MEDS: APIXABAN 2.5 MG TABLET PO SCH ×2 (09:22→20:47)
[2021-04-19] MEDS: VERAPAMIL SR 180 MG TABLET PO SCH (13:16)
[2021-04-19] MEDS: DIGOXIN 0.125 MG TABLET PO SCH (13:17)
[2021-04-19] MEDS: AMOXICILLIN/CLAV 875 MG TABLET PO SCH ×2 (13:17→23:10)
[2021-04-19] MEDS: LINEZOLID 600 MG TABLET PO SCH ×2 (13:17→20:46)
[2021-04-19] MEDS: FUROSEMIDE 40 MG TABLET PO SCH (16:57)
[2021-04-20] MEDS: HYDROmorphone 2 MG/1 ML VIAL IV PRN ×3 (03:36→20:07)
[2021-04-20 06:18] LABS: Calcium 8.5 MG/DL (8.5-10.1); Potassium 4.7 MMOL/L (3.5-5.1)
[2021-04-20 06:59] LABS: Hematocrit 25.7 VOL% (35.7-47.0); Hemoglobin 7.8 GM/DL (12.0-16.0); Immature Granulocytes % 1.7 %; Lymphocytes # 0.3 10*3/uL (1.4-4.0); Lymphocytes % 5.9 % (21.3-54.2); Mean Corpuscular HGB Conc 30.4 GM/DL (32-36); Mean Corpuscular Volume 103.6 FL (87-102); Mean Platelet Volume 10.1 FL (9.6-12.0); Monocytes % 6.8 % (1.7-12.7); NRBC # 0.02 10*3/uL; Neutrophils % 85.6 % (38.7-73.9); Platelet Count 153 T/CUMM (130-400); Red Blood Count 2.48 MC/CUMM (3.8-5.5); Red Cell Distribution Width 19.7 % (9.3-17.3); White Blood Count 5.8 T/CUMM (4-12)
[2021-04-20] MEDS: cilostazoL 50 MG TABLET PO SCH ×2 (08:54→20:09)
[2021-04-20] MEDS: ASCORBIC ACID 500 MG TABLET PO SCH ×2 (08:54→20:08)
[2021-04-20] MEDS: VERAPAMIL SR 180 MG TABLET PO SCH (08:54)
[2021-04-20] MEDS: FUROSEMIDE 40 MG TABLET PO SCH ×2 (08:54→15:38)
[2021-04-20] MEDS: buPROPion XL 150 MG TABLET PO SCH (08:54)
[2021-04-20] MEDS: LINEZOLID 600 MG TABLET PO SCH ×2 (08:54→20:11)
[2021-04-20] MEDS: allopurinoL 300 MG TABLET PO SCH (08:55)
[2021-04-20] MEDS: GABAPENTIN 300 MG CAPSULE PO SCH ×3 (08:55→20:10)
[2021-04-20] MEDS: APIXABAN 2.5 MG TABLET PO SCH ×2 (08:55→20:09)
[2021-04-20] MEDS: MAGNESIUM OXIDE 400 MG TABLET PO SCH ×2 (08:55→20:10)
[2021-04-20] MEDS: AMIODARONE 200 MG TABLET PO SCH ×2 (08:55→20:10)
[2021-04-20] MEDS: TOPIRAMATE 25 MG TABLET PO SCH ×2 (08:55→20:09)
[2021-04-20] MEDS: ATORVASTATIN 40 MG TABLET PO SCH (08:55)
[2021-04-20] MEDS: PANTOPRAZOLE 40 MG TABLET PO SCH (08:55)
[2021-04-20] MEDS: DICYCLOMINE 10 MG CAPSULE PO SCH ×3 (08:55→20:08)
[2021-04-20] MEDS: predniSONE 20 MG TABLET PO SCH (08:55)
[2021-04-20] MEDS: AMOXICILLIN/CLAV 875 MG TABLET PO SCH (11:06)
[2021-04-20] MEDS: DIGOXIN 0.125 MG TABLET PO SCH (13:02)
[2021-04-21] MEDS: AMOXICILLIN/CLAV 875 MG TABLET PO SCH ×2 (00:50→12:35)
[2021-04-21] MEDS: HYDROmorphone 2 MG/1 ML VIAL IV PRN ×4 (00:55→13:32)
[2021-04-21 07:05] LABS: Basophils % 0.2 % (0.0-0.8); Eosinophils % 0.3 % (0.00-10.9); Hematocrit 23.9 VOL% (35.7-47.0); Hemoglobin 7.6 GM/DL (12.0-16.0); Immature Granulocytes Absolute 0.13 #; Lymphocytes # 0.5 10*3/uL (1.4-4.0); Mean Corpuscular HGB Conc 31.8 GM/DL (32-36); Mean Corpuscular Volume 103.9 FL (87-102); Mean Platelet Volume 9.9 FL (9.6-12.0); Monocytes % 8.3 % (1.7-12.7); NRBC # 0.02 10*3/uL; Neutrophils % 81.2 % (38.7-73.9); Platelet Count 144 T/CUMM (130-400); Red Cell Distribution Width 19.8 % (9.3-17.3); White Blood Count 6.5 T/CUMM (4-12)
[2021-04-21 07:20] LABS: Calcium 8.6 MG/DL (8.5-10.1); Osmolality,Calculated 278.1 MOS/KG (273-304); Potassium 4.1 MMOL/L (3.5-5.1)
[2021-04-21 07:52] LABS: Anisocytosis 2+; Platelet Estimate Adequate
[2021-04-21 07:53] LABS: Macrocytosis 1+; Tear Drop Cells Few
[2021-04-21 08:50] LABS: % Iron Saturation 22.5 % (18-50)
[2021-04-21] MEDS: buPROPion XL 150 MG TABLET PO SCH (08:59)
[2021-04-21] MEDS: GABAPENTIN 300 MG CAPSULE PO SCH ×2 (08:59→16:21)
[2021-04-21] MEDS: TOPIRAMATE 25 MG TABLET PO SCH (09:00)
[2021-04-21] MEDS: MAGNESIUM OXIDE 400 MG TABLET PO SCH (09:00)
[2021-04-21] MEDS: VERAPAMIL SR 180 MG TABLET PO SCH (09:00)
[2021-04-21] MEDS: predniSONE 20 MG TABLET PO SCH (09:00)
[2021-04-21] MEDS: PANTOPRAZOLE 40 MG TABLET PO SCH (09:00)
[2021-04-21] MEDS: ASCORBIC ACID 500 MG TABLET PO SCH (09:00)
[2021-04-21] MEDS: ATORVASTATIN 40 MG TABLET PO SCH (09:01)
[2021-04-21] MEDS: allopurinoL 300 MG TABLET PO SCH (09:01)
[2021-04-21] MEDS: LINEZOLID 600 MG TABLET PO SCH (09:01)
[2021-04-21] MEDS: cilostazoL 50 MG TABLET PO SCH (09:01)
[2021-04-21] MEDS: FUROSEMIDE 40 MG TABLET PO SCH ×2 (09:01→16:21)
[2021-04-21] MEDS: DICYCLOMINE 10 MG CAPSULE PO SCH ×2 (09:02→16:21)
[2021-04-21] MEDS: APIXABAN 2.5 MG TABLET PO SCH (09:02)
[2021-04-21] MEDS: AMIODARONE 200 MG TABLET PO SCH (09:02)
[2021-04-21 10:01] LABS: Folate 9.73 NG/ML (5.38-24.0)
[2021-04-21] MEDS ORDERED: SODIUM CHLORIDE 0.9% 1,000 ML IV PRN (12:09)
[2021-04-21] MEDS: DIGOXIN 0.125 MG TABLET PO SCH (13:32)
[2021-04-21 17:29] VITALS: BP 134/66
[2021-04-21] MEDS ORDERED: FERROUS SULFATE 325 MG TABLET PO SCH (21:00)
[2021-04-22 13:50] LABS: Protein S Activity Plasma 180 % (65 - 160)
[2021-04-24 16:29] LABS: DRVVT Confirmation 0.79 ratio (<1.20); Thrombin Time (Bovine), P 24.2 sec
== END 2021-04-21 17:57 | DRG 357 ==
LOC: N.ED 12:16 → SUATTDRO 19:27 → N.EDINP 19:27 → N.3E 21:51 → N.TELEN 04-11 05:50
PROVIDERS: ADMIT Internal Medicine; ATTEND Internal Medicine